=== PATIENT | female | born 1955 | race Asian ===

== ENCOUNTER 2017-11-17 12:21 | Inpatient (IN) | payer OTHER, MEDICAID ==
[~2017-11-17] VITALS: Ht 162.6 cm; Wt 98.6 kg
[2017-11-17] MEDS ORDERED: SODIUM CHLORIDE FLUSH 10ML SYR IVF ONE (15:00)
[2017-11-17] MEDS ORDERED: SODIUM CHLORIDE 0.9% 1,000ML IVBOLUS ONE (15:00)
[2017-11-17] MEDS ORDERED: LEVO5DRO4 LEFTEYE (16:13)
[2017-11-17] MEDS ORDERED: BRIM5DRO3 LEFTEYE (16:13)
[2017-11-17] MEDS ORDERED: ALBU18HF INH (16:13)
[2017-11-17] MEDS ORDERED: CEPH-376 PO (16:13)
[2017-11-17 16:16] LABS: ALBUMIN 2.3 g/dL (3.4-5.0); ANION GAP 10 mmol/L (5-15); CALCIUM 8.5 mg/dL (8.5-10.1); CHLORIDE 113 mmol/L (98-107)
[2017-11-17 16:20] LABS: ALANINE AMINOTRANSFERASE 36 U/L (12-78); ALKALINE PHOSPHATASE 50 U/L (45-117); BILIRUBIN,TOTAL 0.3 mg/dL (0.2-1.0); CREATININE 4.93 mg/dL (0.55-1.02); TOTAL PROTEIN 6.6 g/dL (6.4-8.2)
[2017-11-17 16:24] LABS: MEAN CORPUSCULAR HEMOGLOBIN 29.5 pg (27.0-34.8); MEAN CORPUSCULAR HGB CONC 32.6 g/dL (32.4-35.8); MEAN CORPUSCULAR VOLUME 90.6 fL (80-100); MEAN PLATELET VOLUME 8.8 fL (7.4-10.4); PLATELET COUNT 321 x10^3/uL (130-400); RED BLOOD COUNT 2.41 x10^6/uL (3.82-5.3); RED CELL DISTRIBUTION WIDTH 13.3 % (9.6-15.2)
[2017-11-17 16:25] LABS: HEMOGRAM NOTE RECHECKED; MD YES
[2017-11-17 16:34] LABS: INTERNATIONAL NORMALIZED RATIO 0.99 (0.93-1.1); PROTHROMBIN TIME 10.3 Seconds (9.6-11.5)
[2017-11-17 16:52] LABS: ANISOCYTOSIS 1+; EOS#(MANUAL) 0.52 x10^3/uL (0.0-0.4); EOS% (MANUAL) 2 % (1-7); HYPOCHROMIA 1+; LYMPH#(MANUAL) 1.81 x10^3/uL (1-3.4); LYMPHS% (MANUAL) 7 % (22-44); METAMYELOCYTES# (MANUAL) 0.26 x10^3/uL (0-0); METAMYELOCYTES% (MANUAL) 1 % (0-1); MONOS#(MANUAL) 0.78 x10^3/uL (0.3-2.7); MONOS% (MANUAL) 3 % (2-9); SEG#(MANUAL) 22.53 x10^3/uL (1.8-6.8); SEGS% (MANUAL) 87 % (42-75)
[2017-11-17 16:53] LABS: <PLATELET ESTIMATE> ADEQUATE; <PLT MORPHOLOGY> NORMAL PLT MORPH
[2017-11-17 17:39] VITALS: BP 176/59
[2017-11-17 17:55] VITALS: BP 128/72
[2017-11-17] MEDS ORDERED: LINEZOLID 600 MG TABLET PO SCH (18:00)
[2017-11-17] MEDS ORDERED: LABETALOL 5MG/ML, 20ML IVPush PRN (18:00)
[2017-11-17] MEDS ORDERED: ACETAMINOPHEN 325 MG TABLET PO PRN (18:00)
[2017-11-17] MEDS ORDERED: hydrALAzine 20 MG/ML, 1ML IVPush PRN (18:00)
[2017-11-17] MEDS ORDERED: PIPERACILLIN/TAZO/PMX 4.5GM 100 ML IV SCH ×2 (18:00)
[2017-11-17] MEDS ORDERED: VANCOMYCIN PER PHARMACY MC PRN ×2 (18:00→22:30)
[2017-11-17] MEDS ORDERED: PHARMACOKINETIC CONSULTATION MC ONE (18:30)
[2017-11-17] MEDS ORDERED: VANCOMYCIN 1,800 MG in SODIUM CHLORIDE 0.9% 250 ML IV ONE (18:30)
[2017-11-17 18:33] VITALS: BP 132/78
[2017-11-17 19:56] VITALS: BP 151/73
[2017-11-17] MEDS: SODIUM CHLORIDE 0.9% 1,000 ML IV SCH (20:08)
[2017-11-17] MEDS: METRONIDAZOLE PMX 500MG/100ML 100 ML IV SCH (21:29)
[2017-11-17 22:12] LABS: CULTURE INDICATED? YES; MICROSCOPIC INDICATED
[2017-11-17] MEDS: HEPARIN 5,000 UNITS/ML, 1ML SQ SCH (22:25)
[2017-11-17] MEDS ORDERED: PHARMACOKINETIC MONITORING MC PRN (22:30)
[2017-11-18] VITALS (9 sets, daily range): BP systolic 129–172; BP diastolic 53–70
[2017-11-18] MEDS: PIPERACILLIN/TAZO/PMX 2.25GM 50 ML IVPB SCH ×3 (03:05→19:26)
[2017-11-18] MEDS ORDERED: HYDR-3343 PO (04:50)
[2017-11-18] MEDS ORDERED: METO50TA82 PO (04:51)
[2017-11-18] MEDS ORDERED: ATOR40TA78 PO (04:52)
[2017-11-18] MEDS ORDERED: FURO20TA3 PO (04:53)
[2017-11-18] MEDS ORDERED: AMLO10TA2 PO (04:53)
[2017-11-18] MEDS ORDERED: CLON0.1T PO (04:54)
[2017-11-18] MEDS: METRONIDAZOLE PMX 500MG/100ML 100 ML IV SCH ×3 (05:13→20:52)
[2017-11-18] MEDS: SODIUM CHLORIDE 0.9% 1,000 ML IV SCH ×2 (05:13→19:25)
[2017-11-18 05:52] LABS: MEAN CORPUSCULAR HEMOGLOBIN 30.2 pg (27.0-34.8); MEAN CORPUSCULAR HGB CONC 33.2 g/dL (32.4-35.8); MEAN CORPUSCULAR VOLUME 91.1 fL (80-100); MEAN PLATELET VOLUME 8.7 fL (7.4-10.4); PLATELET COUNT 248 x10^3/uL (130-400); RED BLOOD COUNT 2.27 x10^6/uL (3.82-5.3); RED CELL DISTRIBUTION WIDTH 13.6 % (9.6-15.2)
[2017-11-18 05:53] LABS: CALCIUM 8.1 mg/dL (8.5-10.1); CHLORIDE 116 mmol/L (98-107)
[2017-11-18 05:59] LABS: ALANINE AMINOTRANSFERASE 30 U/L (12-78); ALKALINE PHOSPHATASE 43 U/L (45-117); ANION GAP 10 mmol/L (5-15); BILIRUBIN,TOTAL 0.5 mg/dL (0.2-1.0); CREATININE 4.66 mg/dL (0.55-1.02); TOTAL PROTEIN 5.5 g/dL (6.4-8.2)
[2017-11-18 06:46] LABS: MD YES
[2017-11-18 06:49] LABS: EOS#(MANUAL) 0.22 x10^3/uL (0.0-0.4); EOS% (MANUAL) 1 % (1-7); LYMPH#(MANUAL) 2.58 x10^3/uL (1-3.4); LYMPHS% (MANUAL) 12 % (22-44); MONOS#(MANUAL) 0.65 x10^3/uL (0.3-2.7); MONOS% (MANUAL) 3 % (2-9); SEG#(MANUAL) 18.06 x10^3/uL (1.8-6.8); SEGS% (MANUAL) 84 % (42-75)
[2017-11-18 06:50] LABS: <PLATELET ESTIMATE> ADEQUATE; <PLT MORPHOLOGY> NORMAL PLT MORPH; ANISOCYTOSIS 1+; HYPOCHROMIA 1+
[2017-11-18] MEDS ORDERED: TEMPLATE NON-FORMULARY MED. (Albuterol Sulfate (Ventolin Hfa) 2 PUFF(S)) INH SCH (08:00)
[2017-11-18] MEDS: TEMPLATE NON-FORMULARY MED. (Amlodipine Besylate (Amlodipine Besylate**) 10 MG) PO SCH (09:00)
[2017-11-18] MEDS: TEMPLATE NON-FORMULARY MED. (Brimonidine Tartrate** (Alphagan P**) 1 DROP(S)) LEFTEYE SCH ×2 (09:00→21:00)
[2017-11-18] MEDS: HEPARIN 5,000 UNITS/ML, 1ML SQ SCH ×2 (10:00→22:00)
[2017-11-18] MEDS: LEVOBUNOLOL OPHTH 0.5%, 5ML LEFTEYE SCH ×2 (10:04→20:55)
[2017-11-18] MEDS: METOPROLOL TARTRATE 50 MG TABLET PO SCH ×2 (10:05→20:59)
[2017-11-18] MEDS: INSULIN LISPRO 100 UNITS/ML, PEN SQ-INSULIN SCH ×4 (10:05→20:58)
[2017-11-18] MEDS: FUROSEMIDE 40 MG TABLET PO SCH ×2 (10:06→20:52)
[2017-11-18 14:56] LABS: HEMOGRAM NOTE RECHECKED
[2017-11-18 15:52] LABS: CLOSTRIDIUM DIFFICILE ANTIGEN NEGATIVE; CLOSTRIDIUM DIFFICILE TOXIN NEGATIVE (Negative)
[2017-11-18] MEDS: GOLYTELY 4,000ML ORAL.SOL PO SCH ×7 (17:15→19:25)
[2017-11-18] MEDS: ATORVASTATIN 40 MG TABLET PO SCH (20:52)
[2017-11-19] MEDS: PIPERACILLIN/TAZO/PMX 2.25GM 50 ML IVPB SCH ×4 (01:03→23:45)
[2017-11-19 01:59] VITALS: BP 131/50
[2017-11-19] MEDS: GOLYTELY 4,000ML ORAL.SOL PO SCH ×8 (03:15→04:45)
[2017-11-19] MEDS: SODIUM CHLORIDE 0.9% 1,000 ML IV SCH (04:17)
[2017-11-19] MEDS: METRONIDAZOLE PMX 500MG/100ML 100 ML IV SCH ×3 (05:03→21:28)
[2017-11-19 05:05] LABS: ANION GAP 10 mmol/L (5-15); CALCIUM 7.8 mg/dL (8.5-10.1); CHLORIDE 117 mmol/L (98-107)
[2017-11-19 05:06] LABS: CREATININE 4.22 mg/dL (0.55-1.02)
[2017-11-19 06:36] VITALS: BP 148/66
[2017-11-19] MEDS: INSULIN LISPRO 100 UNITS/ML, PEN SQ-INSULIN SCH ×4 (07:00→21:29)
[2017-11-19] MEDS ORDERED: LABETALOL 5MG/ML 40ML VIAL ONE (08:00)
[2017-11-19] MEDS ORDERED: PROPOFOL 10 MG/ML, 20ML ONE (08:00)
[2017-11-19] MEDS: TEMPLATE NON-FORMULARY MED. (Brimonidine Tartrate** (Alphagan P**) 1 DROP(S)) LEFTEYE SCH ×2 (09:00→21:00)
[2017-11-19] MEDS: TEMPLATE NON-FORMULARY MED. (Amlodipine Besylate (Amlodipine Besylate**) 10 MG) PO SCH (09:00)
[2017-11-19] MEDS: LEVOBUNOLOL OPHTH 0.5%, 5ML LEFTEYE SCH ×2 (09:00→21:28)
[2017-11-19] MEDS: OMEPRAZOLE 20 MG CAPSULE.DR PO SCH (09:00)
[2017-11-19] MEDS ORDERED: hydrALAzine 20 MG/ML, 1ML ONE (09:33)
[2017-11-19] MEDS: HEPARIN 5,000 UNITS/ML, 1ML SQ SCH ×2 (10:00→19:09)
[2017-11-19] MEDS: FUROSEMIDE 40 MG TABLET PO SCH ×2 (12:34→21:28)
[2017-11-19] MEDS: METOPROLOL TARTRATE 50 MG TABLET PO SCH ×2 (12:35→21:27)
[2017-11-19 13:45] VITALS: BP 136/71
[2017-11-19] MEDS ORDERED: SODIUM CHLORIDE 0.9% 1,000 ML IV SCH (16:00)
[2017-11-19 16:28] LABS: MEAN CORPUSCULAR HGB CONC 33.3 g/dL (32.4-35.8); MEAN CORPUSCULAR VOLUME 90.1 fL (80-100); MEAN PLATELET VOLUME 8.4 fL (7.4-10.4); PLATELET COUNT 236 x10^3/uL (130-400); RED BLOOD COUNT 2.66 x10^6/uL (3.82-5.3)
[2017-11-19 16:57] LABS: BASOPHILS # (AUTO) 0.01 x10^3/uL (0-0.1); BASOPHILS % (AUTO) 0 % (0-1); EOSINOPHILS # (AUTO) 0.21 x10^3/uL (0-0.4); EOSINOPHILS % (AUTO) 1 % (1-7); LYMPHOCYTES # (AUTO) 1.35 x10^3/uL (1-3.4); LYMPHOCYTES % (AUTO) 6 % (22-44); MD SCAN; MONOCYTES # (AUTO) 1.26 x10^3/uL (0.2-0.8); MONOCYTES % (AUTO) 6 % (2-9); NEUTROPHILS # (AUTO) 18.91 x10^3/uL (1.8-6.8); NEUTROPHILS % (AUTO) 87 % (42-75)
[2017-11-19] MEDS: SODIUM BICARBONATE 8.4% 150 MEQ in DEXTROSE 5% 1,000 ML IV SCH (17:18)
[2017-11-19 19:05] VITALS: BP 149/62
[2017-11-19] MEDS: ATORVASTATIN 40 MG TABLET PO SCH (21:27)
[2017-11-20] VITALS (11 sets, daily range): BP systolic 136–152; BP diastolic 46–58
[2017-11-20] MEDS: METRONIDAZOLE PMX 500MG/100ML 100 ML IV SCH (04:45)
[2017-11-20 05:43] LABS: CHLORIDE 117 mmol/L (98-107)
[2017-11-20 05:43] LABS: MEAN CORPUSCULAR HEMOGLOBIN 30.1 pg (27.0-34.8); MEAN CORPUSCULAR HGB CONC 33.3 g/dL (32.4-35.8); MEAN CORPUSCULAR VOLUME 90.3 fL (80-100); PLATELET COUNT 241 x10^3/uL (130-400); RED BLOOD COUNT 2.52 x10^6/uL (3.82-5.3); RED CELL DISTRIBUTION WIDTH 14.7 % (9.6-15.2)
[2017-11-20] MEDS: PIPERACILLIN/TAZO/PMX 2.25GM 50 ML IVPB SCH ×3 (05:53→17:28)
[2017-11-20 06:00] LABS: ALANINE AMINOTRANSFERASE 24 U/L (12-78); ALBUMIN 1.9 g/dL (3.4-5.0); ALKALINE PHOSPHATASE 34 U/L (45-117); ANION GAP 11 mmol/L (5-15); BILIRUBIN,TOTAL 0.5 mg/dL (0.2-1.0); CALCIUM 7.8 mg/dL (8.5-10.1); CREATININE 4.21 mg/dL (0.55-1.02); TOTAL PROTEIN 5.3 g/dL (6.4-8.2)
[2017-11-20 06:10] LABS: BASOPHILS # (AUTO) 0.02 x10^3/uL (0-0.1); BASOPHILS % (AUTO) 0 % (0-1); EOSINOPHILS # (AUTO) 0.17 x10^3/uL (0-0.4); EOSINOPHILS % (AUTO) 1 % (1-7); LYMPHOCYTES # (AUTO) 1.49 x10^3/uL (1-3.4); LYMPHOCYTES % (AUTO) 8 % (22-44); MD SCAN; MONOCYTES # (AUTO) 1.59 x10^3/uL (0.2-0.8); MONOCYTES % (AUTO) 8 % (2-9); NEUTROPHILS % (AUTO) 83 % (42-75)
[2017-11-20] MEDS: OMEPRAZOLE 20 MG CAPSULE.DR PO SCH (08:28)
[2017-11-20] MEDS: METOPROLOL TARTRATE 50 MG TABLET PO SCH ×2 (08:28→23:04)
[2017-11-20] MEDS: FUROSEMIDE 40 MG TABLET PO SCH ×2 (08:29→21:09)
[2017-11-20] MEDS: LEVOBUNOLOL OPHTH 0.5%, 5ML LEFTEYE SCH ×2 (08:30→21:35)
[2017-11-20] MEDS: INSULIN LISPRO 100 UNITS/ML, PEN SQ-INSULIN SCH ×4 (08:30→21:35)
[2017-11-20] MEDS: TEMPLATE NON-FORMULARY MED. (Brimonidine Tartrate** (Alphagan P**) 1 DROP(S)) LEFTEYE SCH ×2 (09:00→21:00)
[2017-11-20] MEDS: TEMPLATE NON-FORMULARY MED. (Amlodipine Besylate (Amlodipine Besylate**) 10 MG) PO SCH (09:00)
[2017-11-20] MEDS: SODIUM BICARBONATE 8.4% 150 MEQ in DEXTROSE 5% 1,000 ML IV SCH (09:51)
[2017-11-20] MEDS: HEPARIN 5,000 UNITS/ML, 1ML SQ SCH ×2 (10:27→19:14)
[2017-11-20] MEDS: PANTOPRAZOLE 40 MG IV IVPush SCH ×2 (11:54→22:36)
[2017-11-20] MEDS: LINEZOLID 600 MG TABLET PO SCH (12:56)
[2017-11-20 17:30] LABS: MEAN PLATELET VOLUME 8.7 fL (7.4-10.4); PLATELET COUNT 229 x10^3/uL (130-400); RED BLOOD COUNT 2.34 x10^6/uL (3.82-5.3); RED CELL DISTRIBUTION WIDTH 14.7 % (9.6-15.2)
[2017-11-20 17:33] LABS: HEMOGRAM NOTE RECHECKED
[2017-11-20 17:36] LABS: MD YES
[2017-11-20 17:38] LABS: <PLATELET ESTIMATE> ADEQUATE; <PLT MORPHOLOGY> NORMAL PLT MORPH; ANISOCYTOSIS 1+; BAND#(MANUAL) 0.39 x10^3/uL; BANDS%(MANUAL) 2 % (0-7); EOS#(MANUAL) 0.78 x10^3/uL (0.0-0.4); EOS% (MANUAL) 4 % (1-7); LYMPH#(MANUAL) 1.96 x10^3/uL (1-3.4); LYMPHS% (MANUAL) 10 % (22-44); MONOS#(MANUAL) 1.76 x10^3/uL (0.3-2.7); MONOS% (MANUAL) 9 % (2-9); NRBC % (MANUAL) 1 % (0-1); POLYCHROMASIA 1+; SEGS% (MANUAL) 75 % (42-75)
[2017-11-20] MEDS: ATORVASTATIN 40 MG TABLET PO SCH (21:09)
[2017-11-21] MEDS: LINEZOLID 600 MG TABLET PO SCH ×2 (00:14→14:48)
[2017-11-21] MEDS: PIPERACILLIN/TAZO/PMX 2.25GM 50 ML IVPB SCH ×5 (00:14→23:52)
[2017-11-21 02:38] VITALS: BP 140/56
[2017-11-21 03:08] LABS: MEAN CORPUSCULAR HEMOGLOBIN 29.6 pg (27.0-34.8); MEAN CORPUSCULAR HGB CONC 33.1 g/dL (32.4-35.8); MEAN CORPUSCULAR VOLUME 89.5 fL (80-100); MEAN PLATELET VOLUME 8.8 fL (7.4-10.4); PLATELET COUNT 244 x10^3/uL (130-400); RED BLOOD COUNT 2.85 x10^6/uL (3.82-5.3); RED CELL DISTRIBUTION WIDTH 15.6 % (9.6-15.2)
[2017-11-21 03:20] LABS: ALANINE AMINOTRANSFERASE 23 U/L (12-78); ALBUMIN 1.9 g/dL (3.4-5.0); ANION GAP 9 mmol/L (5-15); CALCIUM 7.9 mg/dL (8.5-10.1); CHLORIDE 115 mmol/L (98-107); CREATININE 4.11 mg/dL (0.55-1.02)
[2017-11-21 03:21] LABS: MD SCAN
[2017-11-21 03:22] LABS: ALKALINE PHOSPHATASE 34 U/L (45-117); BASOPHILS # (AUTO) 0.03 x10^3/uL (0-0.1); BASOPHILS % (AUTO) 0 % (0-1); BILIRUBIN,TOTAL 0.4 mg/dL (0.2-1.0); EOSINOPHILS # (AUTO) 0.21 x10^3/uL (0-0.4); EOSINOPHILS % (AUTO) 1 % (1-7); LYMPHOCYTES # (AUTO) 2.15 x10^3/uL (1-3.4); LYMPHOCYTES % (AUTO) 12 % (22-44); MONOCYTES # (AUTO) 2.02 x10^3/uL (0.2-0.8); MONOCYTES % (AUTO) 11 % (2-9); NEUTROPHILS % (AUTO) 75 % (42-75); TOTAL PROTEIN 5.2 g/dL (6.4-8.2)
[2017-11-21] MEDS: SODIUM BICARBONATE 8.4% 150 MEQ in DEXTROSE 5% 1,000 ML IV SCH (05:25)
[2017-11-21 07:33] VITALS: BP 159/70
[2017-11-21] MEDS: INSULIN LISPRO 100 UNITS/ML, PEN SQ-INSULIN SCH ×4 (07:38→21:00)
[2017-11-21] MEDS: HEPARIN 5,000 UNITS/ML, 1ML SQ SCH (07:40)
[2017-11-21] MEDS: LEVOBUNOLOL OPHTH 0.5%, 5ML LEFTEYE SCH ×2 (07:47→22:34)
[2017-11-21] MEDS: TEMPLATE NON-FORMULARY MED. (Brimonidine Tartrate** (Alphagan P**) 1 DROP(S)) LEFTEYE SCH ×3 (07:47→22:13)
[2017-11-21] MEDS ORDERED: MAGNESIUM SULFATE PMX 4GM/100M 100 ML IV ONE (09:00)
[2017-11-21] MEDS ORDERED: FENTANYL PF 100 MCG/2ML ONE (09:41)
[2017-11-21] MEDS ORDERED: ONDANSETRON 2MG/ML, 2ML IVPush PRN (10:00)
[2017-11-21] MEDS ORDERED: ACETAMINOPHEN 325 MG TABLET PO PRN (10:00)
[2017-11-21] MEDS ORDERED: hydrALAzine 20 MG/ML, 1ML IV PRN (10:00)
[2017-11-21 11:01] VITALS: BP 182/71
[2017-11-21] MEDS: FUROSEMIDE 40 MG TABLET PO SCH ×2 (11:12→22:35)
[2017-11-21] MEDS: METOPROLOL TARTRATE 50 MG TABLET PO SCH ×2 (11:12→22:35)
[2017-11-21] MEDS: PANTOPRAZOLE 40 MG IV IVPush SCH ×2 (11:12→22:29)
[2017-11-21] MEDS: POTASSIUM CHLORIDE 20 MEQ PACKET PO SCH ×3 (11:12→17:28)
[2017-11-21 11:45] LABS: ANION GAP 12 mmol/L (5-15); CHLORIDE 114 mmol/L (98-107); CREATININE 4.14 mg/dL (0.55-1.02)
[2017-11-21] MEDS: TEMPLATE NON-FORMULARY MED. (Amlodipine Besylate (Amlodipine Besylate**) 10 MG) PO SCH (12:55)
[2017-11-21 13:00] VITALS: BP 153/63
[2017-11-21 19:43] VITALS: BP 154/65
[2017-11-21] MEDS: ATORVASTATIN 40 MG TABLET PO SCH (22:34)
[2017-11-22] VITALS (7 sets, daily range): BP systolic 100–145; BP diastolic 42–66
[2017-11-22] MEDS: LINEZOLID 600 MG TABLET PO SCH ×2 (03:45→16:05)
[2017-11-22] MEDS: SODIUM BICARBONATE 8.4% 150 MEQ in DEXTROSE 5% 1,000 ML IV SCH (03:46)
[2017-11-22] MEDS: PIPERACILLIN/TAZO/PMX 2.25GM 50 ML IVPB SCH ×3 (05:36→21:00)
[2017-11-22 05:53] LABS: MEAN CORPUSCULAR HGB CONC 32.8 g/dL (32.4-35.8); MEAN CORPUSCULAR VOLUME 91.7 fL (80-100); MEAN PLATELET VOLUME 9.1 fL (7.4-10.4); PLATELET COUNT 232 x10^3/uL (130-400); RED CELL DISTRIBUTION WIDTH 14.8 % (9.6-15.2)
[2017-11-22 06:10] LABS: BASOPHILS # (AUTO) 0.07 x10^3/uL (0-0.1); BASOPHILS % (AUTO) 1 % (0-1); EOSINOPHILS # (AUTO) 0.28 x10^3/uL (0-0.4); EOSINOPHILS % (AUTO) 2 % (1-7); LYMPHOCYTES # (AUTO) 2.21 x10^3/uL (1-3.4); LYMPHOCYTES % (AUTO) 15 % (22-44); MD SCAN; MONOCYTES # (AUTO) 1.66 x10^3/uL (0.2-0.8); MONOCYTES % (AUTO) 11 % (2-9); NEUTROPHILS # (AUTO) 10.68 x10^3/uL (1.8-6.8); NEUTROPHILS % (AUTO) 72 % (42-75)
[2017-11-22] MEDS: POTASSIUM CHLORIDE 20 MEQ PACKET PO SCH ×3 (08:15→16:50)
[2017-11-22] MEDS: METOPROLOL TARTRATE 50 MG TABLET PO SCH ×2 (08:16→21:01)
[2017-11-22] MEDS: FUROSEMIDE 40 MG TABLET PO SCH (08:16)
[2017-11-22] MEDS: TEMPLATE NON-FORMULARY MED. (Brimonidine Tartrate** (Alphagan P**) 1 DROP(S)) LEFTEYE SCH ×2 (08:17→20:48)
[2017-11-22] MEDS: LEVOBUNOLOL OPHTH 0.5%, 5ML LEFTEYE SCH ×2 (08:17→21:00)
[2017-11-22] MEDS: INSULIN LISPRO 100 UNITS/ML, PEN SQ-INSULIN SCH ×4 (08:59→21:24)
[2017-11-22] MEDS: PANTOPRAZOLE 40 MG IV IVPush SCH ×2 (09:26→21:01)
[2017-11-22 17:47] LABS: BASOPHILS # (AUTO) 0.05 x10^3/uL (0-0.1); BASOPHILS % (AUTO) 0 % (0-1); EOSINOPHILS # (AUTO) 0.33 x10^3/uL (0-0.4); EOSINOPHILS % (AUTO) 2 % (1-7); LYMPHOCYTES # (AUTO) 2.55 x10^3/uL (1-3.4); LYMPHOCYTES % (AUTO) 16 % (22-44); MEAN CORPUSCULAR HEMOGLOBIN 29.9 pg (27.0-34.8); MEAN CORPUSCULAR HGB CONC 32.8 g/dL (32.4-35.8); MEAN CORPUSCULAR VOLUME 91.2 fL (80-100); MEAN PLATELET VOLUME 9.6 fL (7.4-10.4); MONOCYTES # (AUTO) 1.71 x10^3/uL (0.2-0.8); MONOCYTES % (AUTO) 11 % (2-9); NEUTROPHILS # (AUTO) 11.74 x10^3/uL (1.8-6.8); NEUTROPHILS % (AUTO) 72 % (42-75); PLATELET COUNT 219 x10^3/uL (130-400); RED BLOOD COUNT 2.51 x10^6/uL (3.82-5.3); RED CELL DISTRIBUTION WIDTH 15.4 % (9.6-15.2)
[2017-11-22 17:53] LABS: MD NO
[2017-11-22] MEDS: ATORVASTATIN 40 MG TABLET PO SCH (21:01)
[2017-11-23] VITALS (19 sets, daily range): BP systolic 96–169; BP diastolic 44–78
[2017-11-23] MEDS: SODIUM BICARBONATE 8.4% 150 MEQ in DEXTROSE 5% 1,000 ML IV SCH ×2 (01:20→17:57)
[2017-11-23] MEDS: PIPERACILLIN/TAZO/PMX 2.25GM 50 ML IVPB SCH ×4 (01:20→23:08)
[2017-11-23 01:38] LABS: MEAN CORPUSCULAR HEMOGLOBIN 30.5 pg (27.0-34.8); MEAN CORPUSCULAR HGB CONC 33.4 g/dL (32.4-35.8); MEAN CORPUSCULAR VOLUME 91.3 fL (80-100); MEAN PLATELET VOLUME 9.3 fL (7.4-10.4); PLATELET COUNT 185 x10^3/uL (130-400); RED CELL DISTRIBUTION WIDTH 15.2 % (9.6-15.2)
[2017-11-23 01:55] LABS: BASOPHILS # (AUTO) 0.02 x10^3/uL (0-0.1); BASOPHILS % (AUTO) 0 % (0-1); EOSINOPHILS # (AUTO) 0.19 x10^3/uL (0-0.4); EOSINOPHILS % (AUTO) 1 % (1-7); LYMPHOCYTES # (AUTO) 2.34 x10^3/uL (1-3.4); LYMPHOCYTES % (AUTO) 15 % (22-44); MD SCAN; MONOCYTES # (AUTO) 1.31 x10^3/uL (0.2-0.8); MONOCYTES % (AUTO) 8 % (2-9); NEUTROPHILS # (AUTO) 11.88 x10^3/uL (1.8-6.8); NEUTROPHILS % (AUTO) 76 % (42-75)
[2017-11-23] MEDS: LINEZOLID 600 MG TABLET PO SCH ×2 (03:53→21:06)
[2017-11-23] MEDS: POTASSIUM CHLORIDE 20 MEQ PACKET PO SCH ×3 (08:15→19:24)
[2017-11-23] MEDS: LEVOBUNOLOL OPHTH 0.5%, 5ML LEFTEYE SCH ×2 (08:16→21:06)
[2017-11-23] MEDS: METOPROLOL TARTRATE 50 MG TABLET PO SCH ×2 (08:20→21:04)
[2017-11-23] MEDS: TEMPLATE NON-FORMULARY MED. (Brimonidine Tartrate** (Alphagan P**) 1 DROP(S)) LEFTEYE SCH ×2 (08:25→21:00)
[2017-11-23 08:47] LABS: MEAN CORPUSCULAR HEMOGLOBIN 30.4 pg (27.0-34.8); MEAN CORPUSCULAR HGB CONC 33.5 g/dL (32.4-35.8); MEAN CORPUSCULAR VOLUME 90.8 fL (80-100); MEAN PLATELET VOLUME 9.6 fL (7.4-10.4); PLATELET COUNT 179 x10^3/uL (130-400); RED CELL DISTRIBUTION WIDTH 15.3 % (9.6-15.2)
[2017-11-23] MEDS: INSULIN LISPRO 100 UNITS/ML, PEN SQ-INSULIN SCH ×4 (08:52→21:04)
[2017-11-23 08:59] LABS: ALBUMIN 1.8 g/dL (3.4-5.0); ANION GAP 9 mmol/L (5-15); CALCIUM 7.4 mg/dL (8.5-10.1); CHLORIDE 112 mmol/L (98-107); CREATININE 4.51 mg/dL (0.55-1.02)
[2017-11-23] MEDS ORDERED: FUROSEMIDE 40 MG/4 ML IV SCH (09:00)
[2017-11-23 09:01] LABS: MD YES
[2017-11-23 09:03] LABS: <RBC MORPHOLOGY> NORMAL; LYMPH#(MANUAL) 3.44 x10^3/uL (1-3.4); LYMPHS% (MANUAL) 20 % (22-44); MONOS#(MANUAL) 0.17 x10^3/uL (0.3-2.7); MONOS% (MANUAL) 1 % (2-9); NRBC % (MANUAL) 1 % (0-1); POLYCHROMASIA 1+; SEG#(MANUAL) 13.59 x10^3/uL (1.8-6.8); SEGS% (MANUAL) 79 % (42-75)
[2017-11-23 09:04] LABS: <PLATELET ESTIMATE> ADEQUATE; <PLT MORPHOLOGY> NORMAL PLT MORPH; ANISOCYTOSIS 1+
[2017-11-23] MEDS: PANTOPRAZOLE 40 MG IV IVPush SCH (10:37)
[2017-11-23] MEDS ORDERED: PANTOPRAZOLE 80 MG in SODIUM CHLORIDE 0.9% 50 ML IV ONE (12:00)
[2017-11-23] MEDS ORDERED: LABETALOL 5MG/ML, 20ML ONE (15:19)
[2017-11-23] MEDS: LABETALOL 5MG/ML, 20ML IV PRN ×2 (15:20→15:34)
[2017-11-23] MEDS ORDERED: ONDANSETRON 2MG/ML, 2ML IVPush PRN (15:30)
[2017-11-23] MEDS ORDERED: EPINEPHRINE SYRINGE 0.1 MG/ML, 10ML ONE (15:59)
[2017-11-23] MEDS: FUROSEMIDE 40 MG/4 ML IV SCH (19:23)
[2017-11-23] MEDS: PANTOPRAZOLE 80 MG in SODIUM CHLORIDE 0.9% 100 ML IV SCH ×2 (19:23→22:00)
[2017-11-23] MEDS: ATORVASTATIN 40 MG TABLET PO SCH (21:00)
[2017-11-24] MEDS ORDERED: SODIUM CHLORIDE 0.9% 1,000ML IVBOLUS ONE (01:00)
[2017-11-24] MEDS: PANTOPRAZOLE 80 MG in SODIUM CHLORIDE 0.9% 100 ML IV SCH ×2 (03:33→14:33)
[2017-11-24 05:13] LABS: BASOPHILS # (AUTO) 0.03 x10^3/uL (0-0.1); BASOPHILS % (AUTO) 0 % (0-1); EOSINOPHILS # (AUTO) 0.27 x10^3/uL (0-0.4); EOSINOPHILS % (AUTO) 2 % (1-7); LYMPHOCYTES # (AUTO) 0.94 x10^3/uL (1-3.4); LYMPHOCYTES % (AUTO) 6 % (22-44); MD NO; MEAN CORPUSCULAR HEMOGLOBIN 31.3 pg (27.0-34.8); MEAN CORPUSCULAR HGB CONC 34.1 g/dL (32.4-35.8); MEAN CORPUSCULAR VOLUME 91.7 fL (80-100); MEAN PLATELET VOLUME 9.7 fL (7.4-10.4); MONOCYTES # (AUTO) 1.31 x10^3/uL (0.2-0.8); MONOCYTES % (AUTO) 8 % (2-9); NEUTROPHILS # (AUTO) 13.06 x10^3/uL (1.8-6.8); NEUTROPHILS % (AUTO) 84 % (42-75); PLATELET COUNT 149 x10^3/uL (130-400); RED BLOOD COUNT 2.97 x10^6/uL (3.82-5.3); RED CELL DISTRIBUTION WIDTH 16.2 % (9.6-15.2)
[2017-11-24 05:21] LABS: ALBUMIN 1.7 g/dL (3.4-5.0); ANION GAP 7 mmol/L (5-15); CALCIUM 7.3 mg/dL (8.5-10.1); CHLORIDE 112 mmol/L (98-107)
[2017-11-24 05:26] LABS: ALANINE AMINOTRANSFERASE 17 U/L (12-78); ALKALINE PHOSPHATASE 28 U/L (45-117); BILIRUBIN,TOTAL 0.6 mg/dL (0.2-1.0); CREATININE 4.55 mg/dL (0.55-1.02); TOTAL PROTEIN 4.5 g/dL (6.4-8.2)
[2017-11-24] MEDS: POTASSIUM CHLORIDE 20 MEQ PACKET PO SCH ×2 (08:00→12:00)
[2017-11-24] MEDS: FUROSEMIDE 40 MG/4 ML IV SCH (09:00)
[2017-11-24] MEDS: TEMPLATE NON-FORMULARY MED. (Brimonidine Tartrate** (Alphagan P**) 1 DROP(S)) LEFTEYE SCH (09:00)
[2017-11-24] MEDS ORDERED: FUROSEMIDE 40 MG/4 ML IV SCH (09:00)
[2017-11-24] MEDS: METOPROLOL TARTRATE 50 MG TABLET PO SCH ×2 (09:00→20:16)
[2017-11-24] MEDS: PIPERACILLIN/TAZO/PMX 2.25GM 50 ML IVPB SCH (09:41)
[2017-11-24] MEDS: LEVOBUNOLOL OPHTH 0.5%, 5ML LEFTEYE SCH ×2 (09:58→20:15)
[2017-11-24] MEDS: INSULIN LISPRO 100 UNITS/ML, PEN SQ-INSULIN SCH ×4 (09:59→20:18)
[2017-11-24] MEDS: LINEZOLID 600 MG TABLET PO SCH ×2 (10:01→20:19)
[2017-11-24] MEDS: BRIMONIDINE TART. OPHTH 0.2%, 5ML LEFTEYE SCH (20:15)
[2017-11-24] MEDS: ATORVASTATIN 40 MG TABLET PO SCH (20:15)
[2017-11-25] MEDS: PANTOPRAZOLE 80 MG in SODIUM CHLORIDE 0.9% 100 ML IV SCH ×3 (00:44→23:13)
[2017-11-25 05:57] LABS: ALBUMIN 1.8 g/dL (3.4-5.0); ANION GAP 10 mmol/L (5-15); CALCIUM 7.8 mg/dL (8.5-10.1); CHLORIDE 108 mmol/L (98-107)
[2017-11-25 05:58] LABS: CREATININE 3.75 mg/dL (0.55-1.02)
[2017-11-25 06:09] LABS: MEAN CORPUSCULAR HEMOGLOBIN 31.4 pg (27.0-34.8); MEAN CORPUSCULAR HGB CONC 34.3 g/dL (32.4-35.8); MEAN CORPUSCULAR VOLUME 91.5 fL (80-100); MEAN PLATELET VOLUME 9.6 fL (7.4-10.4); PLATELET COUNT 139 x10^3/uL (130-400); RED BLOOD COUNT 2.85 x10^6/uL (3.82-5.3); RED CELL DISTRIBUTION WIDTH 15.9 % (9.6-15.2)
[2017-11-25 06:33] LABS: BASOPHILS # (AUTO) 0.01 x10^3/uL (0-0.1); BASOPHILS % (AUTO) 0 % (0-1); EOSINOPHILS # (AUTO) 0.24 x10^3/uL (0-0.4); EOSINOPHILS % (AUTO) 2 % (1-7); LYMPHOCYTES # (AUTO) 0.63 x10^3/uL (1-3.4); LYMPHOCYTES % (AUTO) 6 % (22-44); MD SCAN; MONOCYTES # (AUTO) 1.97 x10^3/uL (0.2-0.8); MONOCYTES % (AUTO) 17 % (2-9); NEUTROPHILS # (AUTO) 8.62 x10^3/uL (1.8-6.8); NEUTROPHILS % (AUTO) 75 % (42-75)
[2017-11-25] MEDS: INSULIN LISPRO 100 UNITS/ML, PEN SQ-INSULIN SCH ×4 (07:00→21:00)
[2017-11-25] MEDS: LEVOBUNOLOL OPHTH 0.5%, 5ML LEFTEYE SCH ×2 (10:23→21:24)
[2017-11-25] MEDS: METOPROLOL TARTRATE 50 MG TABLET PO SCH ×2 (10:23→21:24)
[2017-11-25] MEDS: LINEZOLID 600 MG TABLET PO SCH ×2 (10:23→21:24)
[2017-11-25] MEDS: BRIMONIDINE TART. OPHTH 0.2%, 5ML LEFTEYE SCH ×2 (10:23→21:23)
[2017-11-25 16:14] VITALS: BP 157/72
[2017-11-25 19:15] VITALS: BP 174/77
[2017-11-25] MEDS: ATORVASTATIN 40 MG TABLET PO SCH (21:24)
[2017-11-26 00:51] VITALS: BP 172/74
[2017-11-26 04:34] LABS: MEAN CORPUSCULAR HEMOGLOBIN 31.2 pg (27.0-34.8); MEAN PLATELET VOLUME 9.4 fL (7.4-10.4); PLATELET COUNT 138 x10^3/uL (130-400); RED BLOOD COUNT 2.97 x10^6/uL (3.82-5.3); RED CELL DISTRIBUTION WIDTH 16.1 % (9.6-15.2)
[2017-11-26 04:40] LABS: ALBUMIN 1.8 g/dL (3.4-5.0); ANION GAP 9 mmol/L (5-15); CALCIUM 7.4 mg/dL (8.5-10.1); CHLORIDE 103 mmol/L (98-107)
[2017-11-26 04:44] LABS: ALANINE AMINOTRANSFERASE 23 U/L (12-78); ALKALINE PHOSPHATASE 37 U/L (45-117); BILIRUBIN,TOTAL 0.6 mg/dL (0.2-1.0); CREATININE 2.97 mg/dL (0.55-1.02); TOTAL PROTEIN 4.9 g/dL (6.4-8.2)
[2017-11-26 05:49] LABS: BASOPHILS # (AUTO) 0.02 x10^3/uL (0-0.1); BASOPHILS % (AUTO) 0 % (0-1); EOSINOPHILS # (AUTO) 0.18 x10^3/uL (0-0.4); EOSINOPHILS % (AUTO) 2 % (1-7); LYMPHOCYTES # (AUTO) 1.12 x10^3/uL (1-3.4); LYMPHOCYTES % (AUTO) 11 % (22-44); MD MORPH REVIEW ONLY; MONOCYTES # (AUTO) 1.97 x10^3/uL (0.2-0.8); MONOCYTES % (AUTO) 19 % (2-9); NEUTROPHILS # (AUTO) 7.12 x10^3/uL (1.8-6.8); NEUTROPHILS % (AUTO) 68 % (42-75)
[2017-11-26 05:50] LABS: ANISOCYTOSIS 1+; PAPPENHEIMER BODIES 1+
[2017-11-26 05:51] LABS: <PLATELET ESTIMATE> ADEQUATE; <PLT MORPHOLOGY> NORMAL PLT MORPH; POLYCHROMASIA 1+
[2017-11-26] MEDS: INSULIN LISPRO 100 UNITS/ML, PEN SQ-INSULIN SCH ×4 (07:00→20:31)
[2017-11-26 07:16] VITALS: BP 177/85
[2017-11-26] MEDS: PANTOPRAZOLE 80 MG in SODIUM CHLORIDE 0.9% 100 ML IV SCH (07:57)
[2017-11-26] MEDS: METOPROLOL TARTRATE 50 MG TABLET PO SCH ×2 (10:40→20:37)
[2017-11-26] MEDS: BRIMONIDINE TART. OPHTH 0.2%, 5ML LEFTEYE SCH ×2 (10:41→20:39)
[2017-11-26] MEDS: LEVOBUNOLOL OPHTH 0.5%, 5ML LEFTEYE SCH ×2 (10:41→20:39)
[2017-11-26] MEDS: LINEZOLID 600 MG TABLET PO SCH ×2 (10:41→20:36)
[2017-11-26 13:44] VITALS: BP 148/74
[2017-11-26] MEDS ORDERED: PANTOPROZOLE 40MG TABLET PO SCH (15:00)
[2017-11-26 19:20] VITALS: BP 142/75
[2017-11-26] MEDS: PANTOPROZOLE 40MG TABLET PO SCH (20:37)
[2017-11-26] MEDS: ATORVASTATIN 40 MG TABLET PO SCH (20:38)
[2017-11-27 02:54] VITALS: BP 122/69
[2017-11-27 05:30] LABS: BASOPHILS # (AUTO) 0.03 x10^3/uL (0-0.1); BASOPHILS % (AUTO) 0 % (0-1); EOSINOPHILS # (AUTO) 0.18 x10^3/uL (0-0.4); EOSINOPHILS % (AUTO) 2 % (1-7); LYMPHOCYTES # (AUTO) 1.24 x10^3/uL (1-3.4); LYMPHOCYTES % (AUTO) 11 % (22-44); MD NO; MEAN CORPUSCULAR HEMOGLOBIN 31.2 pg (27.0-34.8); MEAN CORPUSCULAR HGB CONC 33.5 g/dL (32.4-35.8); MEAN CORPUSCULAR VOLUME 93.1 fL (80-100); MEAN PLATELET VOLUME 9.2 fL (7.4-10.4); MONOCYTES # (AUTO) 1.41 x10^3/uL (0.2-0.8); MONOCYTES % (AUTO) 13 % (2-9); NEUTROPHILS # (AUTO) 7.95 x10^3/uL (1.8-6.8); NEUTROPHILS % (AUTO) 74 % (42-75); PLATELET COUNT 142 x10^3/uL (130-400); RED BLOOD COUNT 3.03 x10^6/uL (3.82-5.3); RED CELL DISTRIBUTION WIDTH 15.7 % (9.6-15.2)
[2017-11-27 05:40] LABS: ANION GAP 9 mmol/L (5-15); CALCIUM 7.8 mg/dL (8.5-10.1); CHLORIDE 100 mmol/L (98-107); CREATININE 2.84 mg/dL (0.55-1.02)
[2017-11-27] MEDS: INSULIN LISPRO 100 UNITS/ML, PEN SQ-INSULIN SCH ×4 (06:45→20:48)
[2017-11-27 07:58] LABS: CRYPTOSPORIDIUM ANTIGEN Negative (Negative)
[2017-11-27 08:55] VITALS: BP 159/78
[2017-11-27] MEDS: PANTOPROZOLE 40MG TABLET PO SCH ×2 (08:59→20:48)
[2017-11-27] MEDS: METOPROLOL TARTRATE 50 MG TABLET PO SCH ×2 (08:59→20:48)
[2017-11-27] MEDS: LINEZOLID 600 MG TABLET PO SCH (08:59)
[2017-11-27] MEDS: BRIMONIDINE TART. OPHTH 0.2%, 5ML LEFTEYE SCH ×2 (09:00→20:47)
[2017-11-27] MEDS: LEVOBUNOLOL OPHTH 0.5%, 5ML LEFTEYE SCH ×2 (09:03→20:47)
[2017-11-27] MEDS: GUAIFENESIN ER 600 MG TABLET PO SCH ×3 (10:00→20:47)
[2017-11-27 14:20] VITALS: BP 114/72
[2017-11-27 19:56] VITALS: BP 165/80
[2017-11-27] MEDS: ATORVASTATIN 40 MG TABLET PO SCH (20:48)
[2017-11-28 00:23] VITALS: BP 114/75
[2017-11-28] MEDS: INSULIN LISPRO 100 UNITS/ML, PEN SQ-INSULIN SCH ×4 (07:00→21:45)
[2017-11-28 07:34] VITALS: BP 123/64
[2017-11-28] MEDS: GUAIFENESIN ER 600 MG TABLET PO SCH ×3 (08:44→21:27)
[2017-11-28] MEDS: METOPROLOL TARTRATE 50 MG TABLET PO SCH (08:44)
[2017-11-28] MEDS: BRIMONIDINE TART. OPHTH 0.2%, 5ML LEFTEYE SCH ×2 (08:44→21:29)
[2017-11-28] MEDS: PANTOPROZOLE 40MG TABLET PO SCH ×2 (08:44→21:27)
[2017-11-28] MEDS: LEVOBUNOLOL OPHTH 0.5%, 5ML LEFTEYE SCH ×2 (08:45→21:30)
[2017-11-28 10:28] LABS: HCT (SEDRATE) 27.1 % (34.6-47.8); MEAN CORPUSCULAR HEMOGLOBIN 30.9 pg (27.0-34.8); MEAN CORPUSCULAR HGB CONC 33.7 g/dL (32.4-35.8); MEAN CORPUSCULAR VOLUME 91.9 fL (80-100); PLATELET COUNT 119 x10^3/uL (130-400); RED BLOOD COUNT 2.95 x10^6/uL (3.82-5.3); RED CELL DISTRIBUTION WIDTH 15.4 % (9.6-15.2)
[2017-11-28 10:40] LABS: ALANINE AMINOTRANSFERASE 19 U/L (12-78); ANION GAP 6 mmol/L (5-15); CALCIUM 7.5 mg/dL (8.5-10.1); CHLORIDE 99 mmol/L (98-107); CREATININE 2.85 mg/dL (0.55-1.02)
[2017-11-28 10:50] LABS: ALKALINE PHOSPHATASE 41 U/L (45-117); BILIRUBIN,TOTAL 0.3 mg/dL (0.2-1.0); TOTAL PROTEIN 5.5 g/dL (6.4-8.2)
[2017-11-28 10:58] LABS: BASOPHILS # (AUTO) 0.02 x10^3/uL (0-0.1); BASOPHILS % (AUTO) 0 % (0-1); EOSINOPHILS # (AUTO) 0.31 x10^3/uL (0-0.4); EOSINOPHILS % (AUTO) 3 % (1-7); LYMPHOCYTES # (AUTO) 1.37 x10^3/uL (1-3.4); LYMPHOCYTES % (AUTO) 14 % (22-44); MD MORPH REVIEW ONLY; MONOCYTES % (AUTO) 16 % (2-9); NEUTROPHILS # (AUTO) 6.87 x10^3/uL (1.8-6.8); NEUTROPHILS % (AUTO) 68 % (42-75)
[2017-11-28 10:59] LABS: ANISOCYTOSIS 1+; BASOPHILLIC STIPPLING 1+; PAPPENHEIMER BODIES 1+; POLYCHROMASIA 1+
[2017-11-28 11:00] LABS: <PLATELET ESTIMATE> DECREASED; LARGE PLATELETS 1+
[2017-11-28 11:08] LABS: SEDIMENTATION RATE 42 mm/hr (0-20)
[2017-11-28 12:01] VITALS: BP 120/70
[2017-11-28] MEDS: CARVEDILOL 12.5 MG TABLET PO SCH (16:54)
[2017-11-28 19:44] VITALS: BP 105/65
[2017-11-28] MEDS: ATORVASTATIN 40 MG TABLET PO SCH (21:27)
[2017-11-29 01:16] VITALS: BP 102/64
[2017-11-29 04:58] LABS: MEAN CORPUSCULAR HEMOGLOBIN 31.2 pg (27.0-34.8); MEAN CORPUSCULAR HGB CONC 33.4 g/dL (32.4-35.8); MEAN CORPUSCULAR VOLUME 93.3 fL (80-100); MEAN PLATELET VOLUME 9.3 fL (7.4-10.4); PLATELET COUNT 107 x10^3/uL (130-400); RED BLOOD COUNT 2.91 x10^6/uL (3.82-5.3); RED CELL DISTRIBUTION WIDTH 15.9 % (9.6-15.2)
[2017-11-29 05:13] LABS: CHLORIDE 101 mmol/L (98-107)
[2017-11-29 05:38] LABS: BASOPHILS # (AUTO) 0.02 x10^3/uL (0-0.1); BASOPHILS % (AUTO) 0 % (0-1); EOSINOPHILS % (AUTO) 3 % (1-7); LYMPHOCYTES # (AUTO) 1.67 x10^3/uL (1-3.4); LYMPHOCYTES % (AUTO) 16 % (22-44); MD SCAN; MONOCYTES % (AUTO) 15 % (2-9); NEUTROPHILS # (AUTO) 7.06 x10^3/uL (1.8-6.8); NEUTROPHILS % (AUTO) 66 % (42-75)
[2017-11-29 05:40] LABS: ANION GAP 8 mmol/L (5-15); CALCIUM 7.3 mg/dL (8.5-10.1); CREATININE 3.75 mg/dL (0.55-1.02)
[2017-11-29 05:41] LABS: % IRON SATURATION 46 % (20-55); ALANINE AMINOTRANSFERASE 19 U/L (12-78); ALKALINE PHOSPHATASE 40 U/L (45-117); BILIRUBIN,TOTAL 0.4 mg/dL (0.2-1.0); IRON LEVEL 58 mcg/dL (50-170); TOTAL IRON BINDING CAPACITY 125 mcg/dL (250-450); TOTAL PROTEIN 5.4 g/dL (6.4-8.2)
[2017-11-29] MEDS: CARVEDILOL 12.5 MG TABLET PO SCH (05:56)
[2017-11-29] MEDS: INSULIN LISPRO 100 UNITS/ML, PEN SQ-INSULIN SCH ×4 (07:00→21:00)
[2017-11-29 08:05] VITALS: BP 102/61
[2017-11-29] MEDS: BRIMONIDINE TART. OPHTH 0.2%, 5ML LEFTEYE SCH ×2 (08:39→22:09)
[2017-11-29] MEDS: LEVOBUNOLOL OPHTH 0.5%, 5ML LEFTEYE SCH ×2 (08:39→22:08)
[2017-11-29] MEDS: PANTOPROZOLE 40MG TABLET PO SCH ×2 (08:41→22:09)
[2017-11-29] MEDS: GUAIFENESIN ER 600 MG TABLET PO SCH ×3 (08:41→22:09)
[2017-11-29 13:32] VITALS: BP 120/69
[2017-11-29] MEDS: CARVEDILOL 6.25 MG TABLET PO SCH (17:35)
[2017-11-29 20:29] VITALS: BP 164/80
[2017-11-29] MEDS: ATORVASTATIN 40 MG TABLET PO SCH (22:09)
[2017-11-30 01:44] VITALS: BP 136/78
[2017-11-30 05:21] LABS: MEAN CORPUSCULAR HEMOGLOBIN 31.5 pg (27.0-34.8); MEAN CORPUSCULAR HGB CONC 33.7 g/dL (32.4-35.8); MEAN CORPUSCULAR VOLUME 93.3 fL (80-100); MEAN PLATELET VOLUME 9.1 fL (7.4-10.4); PLATELET COUNT 106 x10^3/uL (130-400); RED BLOOD COUNT 2.79 x10^6/uL (3.82-5.3)
[2017-11-30 05:30] LABS: CHLORIDE 103 mmol/L (98-107)
[2017-11-30 05:39] LABS: ALANINE AMINOTRANSFERASE 21 U/L (12-78); ALKALINE PHOSPHATASE 48 U/L (45-117); ANION GAP 6 mmol/L (5-15); BILIRUBIN,TOTAL 0.5 mg/dL (0.2-1.0); CALCIUM 7.8 mg/dL (8.5-10.1); CREATININE 2.86 mg/dL (0.55-1.02); TOTAL PROTEIN 5.8 g/dL (6.4-8.2)
[2017-11-30 05:58] LABS: BASOPHILS # (AUTO) 0.02 x10^3/uL (0-0.1); BASOPHILS % (AUTO) 0 % (0-1); EOSINOPHILS # (AUTO) 0.28 x10^3/uL (0-0.4); EOSINOPHILS % (AUTO) 3 % (1-7); LYMPHOCYTES # (AUTO) 1.53 x10^3/uL (1-3.4); LYMPHOCYTES % (AUTO) 15 % (22-44); MD SCAN; MONOCYTES # (AUTO) 1.85 x10^3/uL (0.2-0.8); MONOCYTES % (AUTO) 18 % (2-9); NEUTROPHILS # (AUTO) 6.49 x10^3/uL (1.8-6.8); NEUTROPHILS % (AUTO) 64 % (42-75)
[2017-11-30 06:22] VITALS: BP 138/73
[2017-11-30] MEDS: CARVEDILOL 6.25 MG TABLET PO SCH ×2 (06:25→17:48)
[2017-11-30] MEDS: INSULIN LISPRO 100 UNITS/ML, PEN SQ-INSULIN SCH ×4 (07:00→21:51)
[2017-11-30 08:02] VITALS: BP 121/63
[2017-11-30] MEDS ORDERED: ARANESP 60 MCG/ML **ESRD SQ SCH (09:00)
[2017-11-30] MEDS: GUAIFENESIN ER 600 MG TABLET PO SCH ×3 (10:03→21:50)
[2017-11-30] MEDS: PANTOPROZOLE 40MG TABLET PO SCH ×2 (10:04→21:50)
[2017-11-30] MEDS: LEVOBUNOLOL OPHTH 0.5%, 5ML LEFTEYE SCH ×2 (10:05→21:53)
[2017-11-30] MEDS: BRIMONIDINE TART. OPHTH 0.2%, 5ML LEFTEYE SCH ×2 (10:05→21:53)
[2017-11-30] MEDS ORDERED: ERGOCALCIFEROL 50,000 UNIT CAPSULE PO SCH (11:30)
[2017-11-30 14:03] VITALS: BP 108/68
[2017-11-30 19:46] VITALS: BP 143/76
[2017-11-30] MEDS: ATORVASTATIN 40 MG TABLET PO SCH (21:50)
[2017-12-01 01:34] VITALS: BP 109/69
[2017-12-01 04:41] LABS: CHLORIDE 105 mmol/L (98-107)
[2017-12-01 04:43] LABS: MEAN CORPUSCULAR HEMOGLOBIN 31.6 pg (27.0-34.8); MEAN CORPUSCULAR HGB CONC 33.8 g/dL (32.4-35.8); MEAN CORPUSCULAR VOLUME 93.4 fL (80-100); MEAN PLATELET VOLUME 9.4 fL (7.4-10.4); PLATELET COUNT 114 x10^3/uL (130-400); RED BLOOD COUNT 2.86 x10^6/uL (3.82-5.3); RED CELL DISTRIBUTION WIDTH 15.3 % (9.6-15.2)
[2017-12-01 04:54] LABS: ALANINE AMINOTRANSFERASE 20 U/L (12-78); ALBUMIN 2.1 g/dL (3.4-5.0); ALKALINE PHOSPHATASE 51 U/L (45-117); ANION GAP 8 mmol/L (5-15); BILIRUBIN,TOTAL 0.6 mg/dL (0.2-1.0); CALCIUM 7.9 mg/dL (8.5-10.1); CREATININE 3.93 mg/dL (0.55-1.02); TOTAL PROTEIN 5.9 g/dL (6.4-8.2)
[2017-12-01 05:30] VITALS: BP 118/64
[2017-12-01 05:30] LABS: BASOPHILS # (AUTO) 0.04 x10^3/uL (0-0.1); BASOPHILS % (AUTO) 0 % (0-1); EOSINOPHILS # (AUTO) 0.43 x10^3/uL (0-0.4); EOSINOPHILS % (AUTO) 3 % (1-7); LYMPHOCYTES # (AUTO) 1.86 x10^3/uL (1-3.4); LYMPHOCYTES % (AUTO) 15 % (22-44); MD SCAN; MONOCYTES # (AUTO) 2.11 x10^3/uL (0.2-0.8); MONOCYTES % (AUTO) 17 % (2-9); NEUTROPHILS # (AUTO) 7.97 x10^3/uL (1.8-6.8); NEUTROPHILS % (AUTO) 64 % (42-75)
[2017-12-01] MEDS: CARVEDILOL 6.25 MG TABLET PO SCH ×2 (05:40→17:01)
[2017-12-01] MEDS: INSULIN LISPRO 100 UNITS/ML, PEN SQ-INSULIN SCH ×4 (07:00→21:04)
[2017-12-01 07:06] VITALS: BP 136/70
[2017-12-01] MEDS: LEVOBUNOLOL OPHTH 0.5%, 5ML LEFTEYE SCH ×2 (08:39→21:02)
[2017-12-01] MEDS: BRIMONIDINE TART. OPHTH 0.2%, 5ML LEFTEYE SCH ×2 (08:39→21:01)
[2017-12-01] MEDS: GUAIFENESIN ER 600 MG TABLET PO SCH ×3 (09:00→21:02)
[2017-12-01] MEDS: PANTOPROZOLE 40MG TABLET PO SCH ×2 (09:00→21:02)
[2017-12-01] MEDS ORDERED: BUPIVACAINE/PF 0.5% ONE ×2 (09:26→14:13)
[2017-12-01] MEDS ORDERED: HEPARIN 1,000 UNITS/ML, 10ML ONE ×2 (09:26→14:13)
[2017-12-01] MEDS ORDERED: EPINEPHRINE 1 MG/ML, 1ML ONE ×2 (09:27→14:13)
[2017-12-01] MEDS ORDERED: MIDAZOLAM 1 MG/ML, 2ML ONE (11:01)
[2017-12-01] MEDS ORDERED: PROPOFOL 10 MG/ML, 20ML ONE ×2 (11:02→14:16)
[2017-12-01] MEDS ORDERED: FENTANYL PF 250 MCG/5ML ONE (11:02)
[2017-12-01] MEDS ORDERED: ROCURONIUM 10 MG/ML,10ML ONE (11:03)
[2017-12-01] MEDS ORDERED: GLYCOPYRROLATE 0.4 MG/2 ML, 2ML ONE (11:03)
[2017-12-01] MEDS ORDERED: NEOSTIGMINE 1 MG/ML, 10ML ONE (11:03)
[2017-12-01] MEDS ORDERED: CEFAZOLIN 1,000 MG ONE ×4 (11:04→14:44)
[2017-12-01] MEDS ORDERED: SODIUM CHLORIDE 0.9% PF 10ML ONE (11:04)
[2017-12-01] MEDS ORDERED: ONDANSETRON 2MG/ML, 2ML ONE ×2 (11:10→15:09)
[2017-12-01] MEDS ORDERED: HYDROmorphone 1 MG/ML, 1ML IV PRN (12:00)
[2017-12-01] MEDS ORDERED: morphine SULFATE 10 MG/ML, 1ML IV PRN ×2 (12:00→14:30)
[2017-12-01] MEDS ORDERED: PROMETHAZINE 12.5 MG SUPP PR PRN ×2 (12:00→14:30)
[2017-12-01] MEDS ORDERED: FENTANYL PF 100 MCG/2ML IV PRN ×2 (12:00→14:30)
[2017-12-01] MEDS ORDERED: LABETALOL 5MG/ML, 20ML IV PRN ×2 (12:00→14:30)
[2017-12-01] MEDS ORDERED: OXYcodone 5 MG/5 ML ORAL.SOL UDC PO PRN ×2 (12:00→14:30)
[2017-12-01] MEDS ORDERED: PROMETHAZINE 25 MG/ML, 1ML IV PRN (12:00)
[2017-12-01] MEDS ORDERED: ONDANSETRON 2MG/ML, 2ML IVPush PRN ×2 (12:00→14:30)
[2017-12-01] MEDS ORDERED: hydrALAzine 20 MG/ML, 1ML IV PRN ×2 (12:00→14:30)
[2017-12-01 14:10] VITALS: BP 167/70
[2017-12-01] MEDS ORDERED: SUCCINYLCHOLINE 20 MG/ML, 10ML ONE (14:17)
[2017-12-01] MEDS ORDERED: HEPARIN 1,000 UNITS/ML, 10ML IV ONE (14:57)
[2017-12-01] MEDS ORDERED: METOCLOPRAMIDE 5 MG/ML, 2ML ONE (15:09)
[2017-12-01] MEDS ORDERED: PHENYLEPHRINE 10 MG/ML ONE (15:11)
[2017-12-01] MEDS ORDERED: HEPARIN 5,000 UNITS/ML, 1ML SQ ONE (15:23)
[2017-12-01 20:35] VITALS: BP 135/73
[2017-12-01] MEDS: ATORVASTATIN 40 MG TABLET PO SCH (21:02)
[2017-12-02 01:48] VITALS: BP 131/71
[2017-12-02 05:26] LABS: ALANINE AMINOTRANSFERASE 16 U/L (12-78); ANION GAP 9 mmol/L (5-15); CALCIUM 7.9 mg/dL (8.5-10.1); CHLORIDE 105 mmol/L (98-107); CREATININE 4.54 mg/dL (0.55-1.02)
[2017-12-02 05:28] LABS: ALKALINE PHOSPHATASE 56 U/L (45-117); BILIRUBIN,TOTAL 0.4 mg/dL (0.2-1.0); TOTAL PROTEIN 5.8 g/dL (6.4-8.2)
[2017-12-02] MEDS: CARVEDILOL 6.25 MG TABLET PO SCH ×2 (05:34→18:00)
[2017-12-02 05:37] LABS: MEAN CORPUSCULAR HEMOGLOBIN 31.2 pg (27.0-34.8); MEAN CORPUSCULAR HGB CONC 33.5 g/dL (32.4-35.8); MEAN CORPUSCULAR VOLUME 93.3 fL (80-100); PLATELET COUNT 139 x10^3/uL (130-400); RED BLOOD COUNT 3.05 x10^6/uL (3.82-5.3); RED CELL DISTRIBUTION WIDTH 15.8 % (9.6-15.2)
[2017-12-02] MEDS: INSULIN LISPRO 100 UNITS/ML, PEN SQ-INSULIN SCH ×4 (07:00→21:00)
[2017-12-02 08:34] VITALS: BP 120/67
[2017-12-02] MEDS: LEVOBUNOLOL OPHTH 0.5%, 5ML LEFTEYE SCH ×2 (08:37→22:05)
[2017-12-02] MEDS: PANTOPROZOLE 40MG TABLET PO SCH ×2 (08:37→22:06)
[2017-12-02] MEDS: GUAIFENESIN ER 600 MG TABLET PO SCH ×3 (08:37→22:06)
[2017-12-02] MEDS: BRIMONIDINE TART. OPHTH 0.2%, 5ML LEFTEYE SCH ×2 (08:37→22:04)
[2017-12-02 08:43] LABS: MD YES
[2017-12-02 08:48] LABS: BAND#(MANUAL) 0.23 x10^3/uL; BANDS%(MANUAL) 2 % (0-7); EOS#(MANUAL) 0.35 x10^3/uL (0.0-0.4); EOS% (MANUAL) 3 % (1-7); LYMPHS% (MANUAL) 6 % (22-44); MONOS#(MANUAL) 0.58 x10^3/uL (0.3-2.7); MONOS% (MANUAL) 5 % (2-9); SEG#(MANUAL) 9.74 x10^3/uL (1.8-6.8); SEGS% (MANUAL) 84 % (42-75)
[2017-12-02 08:49] LABS: ANISOCYTOSIS 1+; POLYCHROMASIA 1+
[2017-12-02 08:50] LABS: BASOPHILLIC STIPPLING 1+
[2017-12-02 08:51] LABS: STOMATOCYTES 1+
[2017-12-02 08:54] LABS: <PLATELET ESTIMATE> ADEQUATE; <PLT MORPHOLOGY> NORMAL PLT MORPH; LARGE PLATELETS 1+
[2017-12-02 13:19] VITALS: BP 122/74
[2017-12-02] MEDS ORDERED: PANT40TA5 PO (14:44)
[2017-12-02] MEDS ORDERED: SUCR1TAB33 PO (14:44)
[2017-12-02] MEDS ORDERED: CARV6.2512 PO (14:44)
[2017-12-02 20:54] VITALS: BP 104/61
[2017-12-02] MEDS: ATORVASTATIN 40 MG TABLET PO SCH (22:06)
[2017-12-03 01:14] VITALS: BP 100/57
[2017-12-03] MEDS: CARVEDILOL 6.25 MG TABLET PO SCH ×2 (05:24→17:09)
[2017-12-03 05:26] VITALS: BP 100/53
[2017-12-03] MEDS: INSULIN LISPRO 100 UNITS/ML, PEN SQ-INSULIN SCH ×4 (07:00→21:43)
[2017-12-03 07:33] VITALS: BP 97/62
[2017-12-03] MEDS: GUAIFENESIN ER 600 MG TABLET PO SCH ×3 (08:47→21:35)
[2017-12-03] MEDS: PANTOPROZOLE 40MG TABLET PO SCH ×2 (08:47→21:36)
[2017-12-03] MEDS: LEVOBUNOLOL OPHTH 0.5%, 5ML LEFTEYE SCH ×2 (08:48→21:35)
[2017-12-03] MEDS: BRIMONIDINE TART. OPHTH 0.2%, 5ML LEFTEYE SCH ×2 (08:48→21:34)
[2017-12-03 14:27] VITALS: BP 136/73
[2017-12-03] MEDS: CARVEDILOL 3.125 MG TABLET PO SCH (17:47)
[2017-12-03 20:45] VITALS: BP 104/61
[2017-12-03] MEDS: ATORVASTATIN 40 MG TABLET PO SCH (21:35)
[2017-12-04 03:21] VITALS: BP 107/67
[2017-12-04 06:05] VITALS: BP 114/66
[2017-12-04] MEDS: CARVEDILOL 3.125 MG TABLET PO SCH (06:06)
[2017-12-04] MEDS ORDERED: NPH,100V SC (06:44)
[2017-12-04 06:53] VITALS: BP 122/58
[2017-12-04] MEDS ORDERED: INSU100V5 SQ-INSULIN (07:16)
== END 2017-12-04 08:40 | disposition home or self-care (01) | DRG 853 ==
LOC: ED 17:11 → EDIP 17:12 → ED 18:05 → 3NE 19:36 → CCU 11-23 16:03 → 4EST 11-25 15:52
PROVIDERS: ADMIT Hospitalist; ATTEND Hospitalist
PROC: 30233N1 Transfusion of Nonautologous Red Blood Cells into Peripheral Vein, Percutaneous Approach (ICD-10-PCS; 2017-11-19)
PROC: 0D9K8ZZ Drainage of Ascending Colon, Via Natural or Artificial Opening Endoscopic (ICD-10-PCS; principal; 2017-11-19 08:00)
PROC: 0DB98ZX Excision of Duodenum, Via Natural or Artificial Opening Endoscopic, Diagnostic (ICD-10-PCS; 2017-11-21)
PROC: 0DB68ZX Excision of Stomach, Via Natural or Artificial Opening Endoscopic, Diagnostic (ICD-10-PCS; 2017-11-21)
PROC: 0W3P8ZZ Control Bleeding in Gastrointestinal Tract, Via Natural or Artificial Opening Endoscopic (ICD-10-PCS; 2017-11-23)
PROC: 02HV33Z Insertion of Infusion Device into Superior Vena Cava, Percutaneous Approach (ICD-10-PCS; 2017-11-23)
PROC: B548ZZA Ultrasonography of Superior Vena Cava, Guidance (ICD-10-PCS; 2017-11-23)
DX: A41.9 Sepsis, unspecified organism (principal); K26.4 Chronic or unspecified duodenal ulcer with hemorrhage; N17.0 Acute kidney failure with tubular necrosis; E43 Unspecified severe protein-calorie malnutrition; I13.2 Hypertensive heart and chronic kidney disease with heart failure and with stage 5 chronic kidney disease, or end stage renal disease; J15.20 Pneumonia due to staphylococcus, unspecified; E11.21 Type 2 diabetes mellitus with diabetic nephropathy; D69.1 Qualitative platelet defects; D62 Acute posthemorrhagic anemia; N18.6 End stage renal disease; K25.4 Chronic or unspecified gastric ulcer with hemorrhage; I12.0 Hypertensive chronic kidney disease with stage 5 chronic kidney disease or end stage renal disease; I50.32 Chronic diastolic (congestive) heart failure; N39.0 Urinary tract infection, site not specified; E11.22 Type 2 diabetes mellitus with diabetic chronic kidney disease; E11.319 Type 2 diabetes mellitus with unspecified diabetic retinopathy without macular edema; E66.01 Morbid (severe) obesity due to excess calories; Z68.37 Body mass index [BMI] 37.0-37.9, adult; B95.2 Enterococcus as the cause of diseases classified elsewhere; D63.1 Anemia in chronic kidney disease; E11.65 Type 2 diabetes mellitus with hyperglycemia; E55.9 Vitamin D deficiency, unspecified; G62.9 Polyneuropathy, unspecified; H54.8 Legal blindness, as defined in USA; N25.0 Renal osteodystrophy; Y95 Nosocomial condition; Z16.21 Resistance to vancomycin; Z79.4 Long term (current) use of insulin; Z79.899 Other long term (current) drug therapy; Z87.01 Personal history of pneumonia (recurrent); Z90.01 Acquired absence of eye; Z90.721 Acquired absence of ovaries, unilateral; Z97.0 Presence of artificial eye; Z99.2 Dependence on renal dialysis; Z99.81 Dependence on supplemental oxygen; K80.20 Calculus of gallbladder without cholecystitis without obstruction
CPT/HCPCS: 36415; 36430; 36556; 71045; 74176; 76937; 77001; 78278; 80048; 80053; 80069; 81001; 82306; 82728; 82941; 82962; 83540; 83550; 83605; 83735; 83880; 83970; 84100; 84145; 84550; 85014; 85018; 85025; 85610; 85651; 85730; 86140; 86480; 86677; 86705; 86706; 86850; 86900; 86923; 87040; 87046; 87077; 87081; 87086; 87186; 87324; 87328; 87329; 87340; 88305; 88342; 89055; 93005; 93306; 96360; 96361; 99291; J0171; J0690; J0882; J1644; J1940; J2250; J2405; J2543; J2704; J2710; J3010; J3490; J7070; A9560; C1751; C9113; C9898; G0461; J0330; J0360; J1642; J1815; J2370; J2765; J3475; J7030; P9016